=== PATIENT | female | born 1995 | race Caucasian/White ===

== ENCOUNTER 2017-05-12 22:52 | Emergency (ER) | payer OTHER ==
[2017-05-12 23:43] LABS: BILIRUBIN 2+ mg/dL (NEGATIVE); BLOOD TRACE-LYSED Ery/uL (NEGATIVE); CLARITY HAZY (CLEAR); COLOR YELLOW (YELLOW); GLUCOSE (U) NORMAL (NORMAL); KETONE (U) 1+ (SMALL) mg/dL (NEGATIVE); LEUKOCYTES TRACE Leu/uL (NEGATIVE); NITRITE POSITIVE (NEGATIVE); PROTEIN 2+ mg/dL (NEGATIVE); SPECIFIC GRAVITY >=1.030 (1.001-1.030); pH 5.5 (5.0-9.0)
[2017-05-12 23:50] LABS: BACTERIA 1+; MUCOUS TRACE; SQUAMOUS EPITHELIAL CELLS 20-50
[2017-05-12 23:52] LABS: BASOPHIL 0.1 % (0-2); EOSINOPHIL 0.2 % (0-5); HCT 39.8 % (37.0-47.0); HGB 14.2 g/dl (12.5-16.0); LYMPHOCYTE 13.4 % (15-48); MCH 28.9 pg (25.0-31.0); MCHC 35.7 g/dL (32.0-36.0); MCV 80.9 fL (78.0-100.0); MONOCYTE 5.1 % (0-12); MPV 11.7 fL (6.0-9.5); NEUTROPHIL 81.2 % (41-80); PLT 223 K/uL (150-400); RBC 4.92 M/uL (4.20-5.40); WBC 13.8 K/uL (4.0-10.5)
== END 2017-05-13 01:55 | disposition home or self-care (01) ==
LOC: FER 22:52
PROVIDERS: Emergency Medicine
DX: O23.12 Infections of bladder in pregnancy, second trimester (principal); O16.2 Unspecified maternal hypertension, second trimester; O99.512 Diseases of the respiratory system complicating pregnancy, second trimester; J45.909 Unspecified asthma, uncomplicated; Z91.040 Latex allergy status; Z3A.15 15 weeks gestation of pregnancy
CPT/HCPCS: 36415; 80048; 81001; 85025; 87088

== ENCOUNTER 2021-01-27 08:10 | Emergency (ER) | payer OTHER ==
[~2021-01-27 08:10] MED LIST: ASPIRIN CHEWABL81 MG PO; AUGMENTIN 875-1 EACH PO; FLOMAX0.4 MG PO; LEXAPRO5 MG PO; NAPROXEN500 MG PO; NEXPLANON68 MG ID; NORCO 5-325 TA1 EACH PO; PANTOPRAZOLE SO40 MG PO; PERCOCET 5-3251 EACH PO; PRENATAL FORMU1 EACH PO; REGLAN5 M1 PO; ZOFRAN4 MG PO; ZOFRAN8 MG PO
[2021-01-27 08:34] LABS: BILIRUBIN NEGATIVE (NEGATIVE); BLOOD 3+ Ery/uL (NEGATIVE); COLOR YELLOW (YELLOW); GLUCOSE (U) NORMAL (NORMAL); LEUKOCYTES 2+ Leu/uL (NEGATIVE); NITRITE NEGATIVE (NEGATIVE); PROTEIN TRACE (LOW) mg/dL (NEGATIVE); SPECIFIC GRAVITY >=1.030 (1.001-1.030); UROBILINOGEN 0.2 mg/dL (0.2-1.0); pH 5.5 (5.0-9.0)
[2021-01-27 08:42] LABS: CLARITY HAZY (CLEAR)
[2021-01-27 08:48] LABS: BACTERIA 1+; SQUAMOUS EPITHELIAL CELLS 20-50; URINARY RBC TNTC; URINARY WBC 20-50
[2021-01-27] MEDS ORDERED: ONDANSETRON ODT4 MG PO (09:12)
[2021-01-27] MEDS ORDERED: NORCO 5-325 TA1 EACH PO ×2 (09:12→09:15)
== END 2021-01-27 09:29 | disposition home or self-care (01) ==
LOC: FER 08:10
PROVIDERS: Emergency Medicine
DX: N13.2 Hydronephrosis with renal and ureteral calculous obstruction (principal); R16.1 Splenomegaly, not elsewhere classified; R59.1 Generalized enlarged lymph nodes; Z87.442 Personal history of urinary calculi
CPT/HCPCS: 81001; J1885

== ENCOUNTER 2021-04-11 21:33 | Emergency (ER) | payer OTHER ==
[~2021-04-11 21:33] MED LIST changes: +ONDANSETRON ODT4 MG PO
[2021-04-12] MEDS ORDERED: NORCO 5-325 TA1 EACH PO (02:09)
== END 2021-04-12 02:30 | disposition home or self-care (01) ==
LOC: FER 21:33
DX: O9A.211 Injury, poisoning and certain other consequences of external causes complicating pregnancy, first trimester (principal); S93.401A Sprain of unspecified ligament of right ankle, initial encounter; O16.1 Unspecified maternal hypertension, first trimester; Z79.82 Long term (current) use of aspirin; Z3A.08 8 weeks gestation of pregnancy; X50.1XXA Overexertion from prolonged static or awkward postures, initial encounter; Y92.410 Unspecified street and highway as the place of occurrence of the external cause
CPT/HCPCS: 73610; 73630

== ENCOUNTER 2021-04-18 14:56 | Emergency (ER) | payer OTHER ==
[2021-04-18 16:49] LABS: BASOPHIL 0.3 % (0-2); EOSINOPHIL 0.7 % (0-5); HCT 42.1 % (37.0-47.0); HGB 14.7 g/dl (12.5-16.0); MCH 28.7 pg (25.0-31.0); MCHC 34.9 g/dL (32.0-36.0); MCV 82.2 fL (78.0-100.0); MONOCYTE 3.7 % (0-12); MPV 11.7 fL (6.0-9.5); NEUTROPHIL 85.9 % (41-80); NRBC 0; PLT 225 K/uL (150-400); RBC 5.12 M/uL (4.20-5.40); RDW 13.2 % (11.5-14.0); WBC 12.5 K/uL (4.0-10.5)
[2021-04-18 17:07] LABS: BUN/CREAT RATIO (CALC) 8.2 RATIO; CREATININE 0.73 mg/dL (0.51-0.95); POTASSIUM 3.2 mmol/L (3.5-5.1)
[2021-04-18 17:08] LABS: BILIRUBIN 2+ mg/dL (NEGATIVE); BLOOD 3+ Ery/uL (NEGATIVE); CLARITY CLEAR (CLEAR); COLOR YELLOW (YELLOW); GLUCOSE (U) NORMAL (NORMAL); LEUKOCYTES 2+ Leu/uL (NEGATIVE); NITRITE POSITIVE (NEGATIVE); PROTEIN 3+ mg/dL (NEGATIVE); SPECIFIC GRAVITY >=1.030 (1.001-1.030); pH 5.5 (5.0-9.0)
[2021-04-18 17:16] LABS: URINARY RBC TNTC; URINARY WBC TNTC
[2021-04-18 17:17] LABS: BACTERIA 4+; SQUAMOUS EPITHELIAL CELLS 20-50
[2021-04-18] MEDS ORDERED: MACROBID100 MG PO (18:40)
== END 2021-04-18 19:06 | disposition home or self-care (01) ==
LOC: FER 14:56
PROVIDERS: Emergency Medicine
DX: O23.41 Unspecified infection of urinary tract in pregnancy, first trimester (principal); O99.281 Endocrine, nutritional and metabolic diseases complicating pregnancy, first trimester; E86.0 Dehydration; O99.341 Other mental disorders complicating pregnancy, first trimester; F41.9 Anxiety disorder, unspecified; Z3A.10 10 weeks gestation of pregnancy; Z86.2 Personal history of diseases of the blood and blood-forming organs and certain disorders involving the immune mechanism; Z90.49 Acquired absence of other specified parts of digestive tract; Z87.19 Personal history of other diseases of the digestive system; Z79.82 Long term (current) use of aspirin
CPT/HCPCS: 36415; 80048; 81001; 84702; 85025; 87088; J0696; J2405; J2550; J7030

== ENCOUNTER 2021-11-07 01:06 | Inpatient (IN) | payer OTHER ==
[~2021-11-07 01:06] MED LIST changes: +MACROBID100 MG PO
[2021-11-07 01:41] LABS: BILIRUBIN NEGATIVE (NEGATIVE); BLOOD NEGATIVE Ery/uL (NEGATIVE); CLARITY CLEAR (CLEAR); COLOR YELLOW (YELLOW); GLUCOSE (U) NORMAL (NORMAL); LEUKOCYTES NEGATIVE Leu/uL (NEGATIVE); NITRITE NEGATIVE (NEGATIVE); PROTEIN TRACE (LOW) mg/dL (NEGATIVE); pH 6.5 (5.0-9.0)
[2021-11-08 09:51] LABS: BILIRUBIN 1+ mg/dL (NEGATIVE); BLOOD 3+ Ery/uL (NEGATIVE); CLARITY CLEAR (CLEAR); COLOR YELLOW (YELLOW); GLUCOSE (U) NORMAL (NORMAL); LEUKOCYTES 2+ Leu/uL (NEGATIVE); NITRITE NEGATIVE (NEGATIVE); PROTEIN 1+ mg/dL (NEGATIVE); SPECIFIC GRAVITY 1.025 (1.001-1.030); pH 7.5 (5.0-9.0)
[2021-11-08 09:58] LABS: AMPHETAMINES NEGATIVE (NEGATIVE); BARBITURATES NEGATIVE (NEGATIVE); ECSTASY (MDMA) NEGATIVE (NEGATIVE); MARIJUANA (THC) NEGATIVE (NEGATIVE); METHADONE NEGATIVE (NEGATIVE); OPIATES NEGATIVE (NEGATIVE); OXYCODONE NEGATIVE (NEGATIVE)
[2021-11-08 10:00] LABS: BACTERIA 3+; SQUAMOUS EPITHELIAL CELLS >50
[2021-11-08 10:34] LABS: HCT 35.9 % (37.0-47.0); HGB 12.1 g/dl (12.5-16.0); MCH 27.6 pg (25.0-31.0); MCHC 33.7 g/dL (32.0-36.0); RBC 4.38 M/uL (4.20-5.40); RDW 14.3 % (11.5-14.0)
[2021-11-08 10:58] LABS: ALBUMIN 2.5 g/dL (3.4-5.0); BILIRUBIN - TOTAL 0.4 mg/dL (0.2-1.0); CREATININE 0.57 mg/dL (0.51-0.95); GLOBULIN (CALCULATION) 3.6 g/dL; POTASSIUM 3.6 mmol/L (3.5-5.1); TOTAL PROTEIN 6.1 g/dL (6.4-8.2)
[2021-11-09 05:54] LABS: HCT 29.3 % (37.0-47.0); HGB 9.7 g/dl (12.5-16.0); MCH 27.8 pg (25.0-31.0); MCHC 33.1 g/dL (32.0-36.0); MPV 11.2 fL (6.0-9.5); RBC 3.49 M/uL (4.20-5.40); RDW 14.4 % (11.5-14.0); WBC 11.2 K/uL (4.0-10.5)
== END 2021-11-10 11:10 | disposition home or self-care (01) | DRG 806 ==
LOC: FOD 01:06 → FOB 01:07 → FOD 02:45 → FOB 11-08 09:10 → FOD 11-08 09:10 → FOB 11-10 11:10
PROVIDERS: ADMIT Obstetrics & Gynecology
PROC: 10E0XZZ Delivery of Products of Conception, External Approach (ICD-10-PCS; principal; 2021-11-08)
DX: O99.214 Obesity complicating childbirth (principal); D62 Acute posthemorrhagic anemia; Z37.0 Single live birth; Z3A.38 38 weeks gestation of pregnancy; Z20.822 Contact with and (suspected) exposure to COVID-19; O24.429 Gestational diabetes mellitus in childbirth, unspecified control; O99.344 Other mental disorders complicating childbirth; F32.A Depression, unspecified; O90.81 Anemia of the puerperium; Z79.899 Other long term (current) drug therapy
CPT/HCPCS: 36415; 80053; 80305; 81001; 81003; 82009; 82947; 82962; 84112; 86850; 86900; 86901; J2916; J7121; U0002